=== PATIENT | female | born 1990 | race Caucasian/White ===

== ENCOUNTER 2017-11-01 12:06 | Emergency (ER) | payer SELFPAY ==
[2017-11-01 12:46] VITALS: BP 112/77; PULSE 101; RESP 18; TEMP 99.4; O2SAT 100
--- NOTE | 2017-11-01 14:16 | C.PDOC ---
History Of Present Illness 27yo female, presents to ED with complaints of fever, bodyaches, cough, sore throat, congestion and headache for the past 2 days. She reports 2 episodes of vomiting yesterday, as well as episodes of diarrhea yesterday. She reports taking Tylenol for her symptoms with minimal relief. She did not receive the flu vaccination this season. Time Seen by Provider: 11/01/17 13:41 Chief Complaint (Nursing): Flu-like Symptoms History Per: Patient History/Exam Limitations: no limitations Onset/Duration Of Symptoms: Days Current Symptoms Are (Timing): Still Present Location Of Pain: Throat, Sinus/es, Diffuse Myalgias, Headache Associated Symptoms: Chills, Sore Throat, Cough, Myalgias, Nasal Congestion, Vomiting, Diarrhea Additional History Per: Patient Past Medical History Reviewed: Historical Data, Nursing Documentation, Vital Signs Vital Signs: Last Vital Signs Temp 99.4 F 11/01/17 12:41 Pulse 101 H 11/01/17 12:41 Resp 18 11/01/17 12:41 BP 112/77 11/01/17 12:41 Pulse Ox 100 11/01/17 14:28 - Medical History PMH: No Chronic Diseases - [facility] Procedures TETANUS TOXOID ADMINIST (12/17/03) Family History: States: No Known Family Hx, Unknown Family Hx - Social History Hx Tobacco Use: Yes Hx Alcohol Use: No Hx Substance Use: No - Immunization History Hx Tetanus Toxoid Vaccination: No Hx Influenza Vaccination: No Hx Pneumococcal Vaccination: No Review Of Systems Constitutional: Positive for: Fever, Malaise ENT: Positive for: Nose Congestion, Throat Pain. Negative for: Ear Pain Cardiovascular: Negative for: Palpitations Respiratory: Positive for: Cough. Negative for: Sputum, Wheezing Gastrointestinal: Positive for: Vomiting, Diarrhea. Negative for: Abdominal Pain Genitourinary: Negative for: Dysuria Neurological: Positive for: Headache. Negative for: Weakness, Numbness, Dizziness Physical Exam - Physical Exam Appears: Non-toxic Skin: Normal Color, Warm, Dry Head: Atraumatic, Normacephalic Eye(s): bilateral: Normal Inspection, PERRL, EOMI Ear(s): Bilateral: Normal (no erythema) Nose: Normal Oral Mucosa: Moist Throat: Normal, No Erythema, No Exudate Neck: Normal ROM, Supple Chest: Symmetrical Cardiovascular: Rhythm Regular, No Murmur Respiratory: Normal Breath Sounds, No Rhonchi, No Wheezing Extremity: Bilateral: Atraumatic, Normal Color And Temperature, Normal ROM Neurological/Psych: Oriented x3, Normal Speech Gait: Steady ED Course And Treatment O2 Sat by Pulse Oximetry: 100 (room air) Pulse Ox Interpretation: Normal Medical Decision Making Medical Decision Making: Impression: Viral illness Plan: -- Rapid flu Time: 1345 Serology reports indicate patient positive for Flu A. Re-eval: Patient informed she has the flu and explain the course and symptoms of Influenza. Rx for Tamiflu given. Recommend supportive treatment and instruct to take Tylenol or Motrin alternating every 4-6 hours for Fever 100.4F or higher. Rest and drink plenty of fluids to prevent dehydration. Patient feels comfortable going home and will be discharged. Patient given follow up instructions. Instructed to return to ER if symptoms worsen or new symptoms arise. Disposition Counseled Patient/Family Regarding: Need For Followup, Rx Given - Disposition Referrals: [facility] [Outside] [facility] [Outside] Disposition: HOME/ ROUTINE Disposition Time: 14:15 Condition: GOOD Additional Instructions: You have Influenza. Take Tamiflu twice a day for 5 days Take Tylenol or Motrin alternating every 4-6 hours for Fever 100.4F or higher. Take medicine as needed for symptoms relief follow up in the clinic for more medical care Prescriptions: Ibuprofen [Motrin] 600 mg PO Q8 #30 tab Oseltamivir [Tamiflu] 75 mg PO BID #10 cap Instructions: Influenza (ED) Forms: [facility] (Luxembourgish), Work Excuse - POA Present On Arrival: None - Clinical Impression Clinical Impression: Influenza - PA / ASSISTANT PASTRY CHEF / Resident Statement MD/DO has reviewed & agrees with the documentation as recorded. - Scribe Statement The provider has reviewed the documentation as recorded by the Scribe (Tracy Vera) Provider Scribe Attestation: All medical record entries made by the Scribe were at my direction and personally dictated by me. I have reviewed the chart and agree that the record accurately reflects my personal performance of the history, physical exam, medical decision making, and the department course for this patient. I have also personally directed, reviewed, and agree with the discharge instructions and disposition.
== END 2017-11-01 14:45 | disposition home or self-care (01) ==
LOC: C.ER 12:06
DX: J11.1 Influenza due to unidentified influenza virus with other respiratory manifestations (principal); F17.210 Nicotine dependence, cigarettes, uncomplicated

== ENCOUNTER 2019-02-01 18:39 | Emergency (ER) | payer SELFPAY ==
[2019-02-01] MEDS ORDERED: Sodium Chloride 0.9% 1,000 ML IV ONE (19:08)
[2019-02-01] MEDS ORDERED: Iohexol 240 (50 ml) PO ONE (19:09)
--- NOTE | 2019-02-01 19:19 | C.PDOC ---
History Of Present Illness 28 year old female presents to the ED complains of abdominal pain radiating to her right lower back for 4 days. Associated with rectal bleeding and black stools. Denies any fever, chills, shortness of breath, chest pain, dysuria, hem aturia, nausea, vomiting, diarrhea, or any other symptoms. Chief Complaint (Nursing): Back Pain History Per: Patient History/Exam Limitations: no limitations Onset/Duration Of Symptoms: Days Current Symptoms Are (Timing): Still Present Radiation Of Pain To:: Back Quality Of Discomfort: "Pain" Associated Symptoms: Back Pain. denies: Fever, Chills, Nausea, Vomiting, Diarrhea, Chest Pain, Urinary Symptoms Past Medical History Reviewed: Historical Data, Nursing Documentation, Vital Signs Vital Signs: Last Vital Signs Temp 98.8 F 02/01/19 18:58 Pulse 78 02/01/19 18:58 Resp 20 02/01/19 18:58 BP 119/78 02/01/19 18:58 Pulse Ox 98 02/01/19 18:58 - Medical History PMH: No Chronic Diseases Other Surgeries: eye surgery - [facility] Procedures TETANUS TOXOID ADMINIST (12/17/03) Family History: States: No Known Family Hx - Social History Hx Tobacco Use: Yes Hx Alcohol Use: No Hx Substance Use: No - Immunization History Hx Tetanus Toxoid Vaccination: No Hx Influenza Vaccination: No Hx Pneumococcal Vaccination: No Review Of Systems Constitutional: Negative for: Fever, Chills Cardiovascular: Negative for: Chest Pain Respiratory: Negative for: Shortness of Breath Gastrointestinal: Positive for: Abdominal Pain, Melena, Hematochezia. Negative for: Nausea, Vomiting, Diarrhea Genitourinary: Negative for: Dysuria, Hematuria, Vaginal Discharge, Vaginal Bleeding Musculoskeletal: Positive for: Back Pain Neurological: Negative for: Headache Physical Exam - Physical Exam Appears: Non-toxic, No Acute Distress Skin: Warm, Dry Head: Normacephalic Eye(s): bilateral: PERRL, EOMI, Conjunctiva Pale Nose: Normal Oral Mucosa: Moist Neck: Supple Chest: Symmetrical Cardiovascular: Rhythm Regular Respiratory: Normal Breath Sounds, No Rales, No Rhonchi, No Wheezing Gastrointestinal/Abdominal: Soft, Tenderness (RLQ ), No Distention, No Guarding, No Rebound Rectal: No Blood Streaked Stool, Other (brown stools ) Back: No CVA Tenderness Neurological/Psych: Oriented x3, Normal Speech Gait: Steady ED Course And Treatment - Laboratory Results Result Diagrams: 02/01/19 19:25 02/01/19 19:25 O2 Sat by Pulse Oximetry: 98 (RA) Pulse Ox Interpretation: Normal Medical Decision Making Medical Decision Making: Plan - CT abd/pel - Bloodwork - Toradol 30mg IVP - Protonix 40mg IVP - UA - HCG Urine Disposition Counseled Patient/Family Regarding: Diagnosis - Disposition Referrals: Joann Camarena MD [Staff Provider] - [facility] [Outside] Disposition: HOME/ ROUTINE Disposition Time: 23:07 Condition: STABLE Instructions: Bloody Stools, Adult (DC), Colitis Forms: [facility] (Uzbek) - POA Present On Arrival: None - Clinical Impression Clinical Impression: Colitis, Rectal bleed - Scribe Statement The provider has reviewed the documentation as recorded by the Scribe Millie Villanueva All medical record entries made by the Scribe were at my direction and personally dictated by me. I have reviewed the chart and agree that the record accurately reflects my personal performance of the history, physical exam, medical decision making, and the department course for this patient. I have also personally directed, reviewed, and agree with the discharge instructions and disposition.
[2019-02-01] MEDS ORDERED: Sodium Chloride 0.9% 1,000 ML ONE (19:28)
[2019-02-01] MEDS ORDERED: Iohexol 240 (50 ml) ONE (19:28)
[2019-02-01 19:33] LABS: BASO # 0.1 K/uL (0.0-0.2); BASO % 0.5 % (0.0-2.0); EOS # 0.2 K/uL (0.0-0.7); EOS % 1.9 % (0.0-4.0); HEMOGLOBIN 12.7 g/dL (11.0-16.0); LYMPH # 3.9 K/uL (1.0-4.3); LYMPH % 41.5 % (20.0-40.0); MEAN CELL VOLUME 83.6 fL (81.0-99.0); MEAN CORPUSCULAR HEMOGLOBIN 27.6 pg (27.0-31.0); MEAN CORPUSCULAR HGB CONC 33.1 g/dL (33.0-37.0); MEAN PLATELET VOLUME 10.2 fL (7.2-11.7); MONO # 0.7 K/uL (0.0-0.8); MONO % 7.5 % (0.0-10.0); NEUT # 4.6 K/uL (1.8-7.0); NEUT % 48.6 % (50.0-75.0); RBC 4.61 Mil/uL (3.80-5.20); RED CELL DISTRIBUTION WIDTH 13.7 % (11.5-14.5); WHITE BLOOD COUNT 9.4 K/uL (4.8-10.8)
[2019-02-01 19:43] LABS: HCG,QUALITATIVE URINE NEGATIVE (NEGATIVE)
[2019-02-01 19:44] LABS: SQUAMOUS EPITHIAL 2 /hpf (0-5); URINE BACTERIA RARE (<OCC); URINE BILIRUBIN NEGATIVE (NEGATIVE); URINE BLOOD NEGATIVE (NEGATIVE); URINE CLARITY Hazy (Clear); URINE COLOR Yellow (YELLOW); URINE GLUCOSE (UA) NORMAL (Normal); URINE LEUKOCYTE ESTERASE NEG Leu/uL (Negative); URINE PROTEIN NEGATIVE (NEGATIVE); URINE UROBILINOGEN NORMAL mg/dL (0.2-1.0)
[2019-02-01 19:49] LABS: ALB/GLOB RATIO 1.5 (1.0-2.1); ALBUMIN 4.4 g/dL (3.5-5.0); ALT/SGPT 40 U/L (9-52); AST/SGOT 31 U/L (14-36); BLOOD UREA NITROGEN 20 mg/dL (7-17); CALCIUM 9.9 mg/dl (8.6-10.4); GFR NON-AFRICAN AMERICAN > 60; LIPASE 59 U/L (23-300)
[2019-02-01 19:54] LABS: INR 1.1; PROTHROMBIN TIME 11.9 SECONDS (9.7-12.2)
[2019-02-01] MEDS ORDERED: Iodixanol 320 MG/ML 100 ML BOTTLE IV ONE (20:18)
[2019-02-01 23:06] VITALS: BP 101/70; PULSE 64; RESP 20; TEMP 97.4
[2019-02-01 23:08] VITALS: O2SAT 98
--- NOTE | 2019-02-02 08:49 | CT ---
Date of service: 02/01/2019 PROCEDURE: CT Abdomen and Pelvis with contrast HISTORY: GI bleeding COMPARISON: None available. TECHNIQUE: CT scan of the abdomen and pelvis was performed after administration of intravenous contrast. Oral contrast was administered. Coronal and sagittal reformatted images were obtained. Contrast dose: 100 mL Visipaque 320 Radiation dose: Total exam DLP = 1167.65 mGy-cm. This CT exam was performed using one or more of the following dose reduction techniques: Automated exposure control, adjustment of the mA and/or kV according to patient size, and/or use of iterative reconstruction technique. FINDINGS: LOWER THORAX: The visualized lungs are clear. LIVER: Normal in size with homogeneous enhancement. No gross lesion or ductal dilatation. GALLBLADDER AND BILE DUCTS: The gallbladder is contracted. PANCREAS: Normal in size with homogeneous enhancement. No gross lesion or ductal dilatation. SPLEEN: Normal in size and appearance. ADRENALS: No discrete nodule. KIDNEYS AND URETERS: Normal in size with homogeneous enhancement. No hydronephrosis. There is a 1.4 x 1.3 cm low-attenuation lesion internal septations in the lower pole of the left kidney posteriorly. VASCULATURE: No aortic aneurysm. There are no aortic atherosclerotic calcifications or mural plaque present. BOWEL: The small bowel loops are normal in caliber. There is mild circumferential mural thickening in the descending and sigmoid colon. No evidence for bowel obstruction. APPENDIX: Normal appendix. PERITONEUM: No free fluid. No free air. LYMPH NODES: No enlarged lymph nodes. BLADDER: Well distended and normal in appearance. REPRODUCTIVE: The uterus is normal in size. BONES: No acute fracture. Within normal limits for the patient's age. OTHER FINDINGS: None. IMPRESSION: 1. Findings are most compatible with acute nonspecific infectious/inflammatory colitis involving the descending and sigmoid colon. No evidence for bowel obstruction. 2. 1.3 x 1.4 cm apparent complicated/septated cyst in the lower pole of the left kidney. Please correlate with retroperitoneal ultrasound for further evaluation. A preliminary report was provided by [facility]. Please follow-up with retroperitoneum ultrasound for further characterization of complicated/septated cyst in the left kidney. This finding was not mentioned on the preliminary report. The final report is tagged to the PA review folder.
== END 2019-02-01 23:17 | disposition home or self-care (01) ==
LOC: C.ER 18:39
DX: K52.9 Noninfective gastroenteritis and colitis, unspecified (principal); K62.5 Hemorrhage of anus and rectum
CPT/HCPCS: 74177; 80053; 81001; 83690; 84703; 85025; 85610; 85730; 86850; 86900; 96374; 96375; 99285; C9113; G0328; J1885; J7030; Q9966; Q9967

== ENCOUNTER 2019-02-02 09:06 | Observation (INO) | payer SELFPAY ==
[2019-02-02] MEDS ORDERED: Sodium Chloride 0.9% 1,000 ML IV ONE ×2 (09:29→13:34)
[2019-02-02] MEDS ORDERED: Sodium Chloride 0.9% 1,000 ML ONE ×2 (09:39→13:42)
[2019-02-02 09:41] LABS: BASO # 0.1 K/uL (0.0-0.2); BASO % 0.8 % (0.0-2.0); EOS # 0.1 K/uL (0.0-0.7); EOS % 2.1 % (0.0-4.0); HEMOGLOBIN 12.7 g/dL (11.0-16.0); LYMPH # 2.4 K/uL (1.0-4.3); LYMPH % 35.8 % (20.0-40.0); MEAN CORPUSCULAR HEMOGLOBIN 28.2 pg (27.0-31.0); MEAN CORPUSCULAR HGB CONC 33.5 g/dL (33.0-37.0); MEAN PLATELET VOLUME 10.2 fL (7.2-11.7); MONO # 0.5 K/uL (0.0-0.8); MONO % 7.3 % (0.0-10.0); NEUT # 3.6 K/uL (1.8-7.0); RBC 4.52 Mil/uL (3.80-5.20); RED CELL DISTRIBUTION WIDTH 13.9 % (11.5-14.5); WHITE BLOOD COUNT 6.7 K/uL (4.8-10.8)
[2019-02-02 09:56] LABS: ALB/GLOB RATIO 1.4 (1.0-2.1); ALBUMIN 4.1 g/dL (3.5-5.0); ALT/SGPT 39 U/L (9-52); AST/SGOT 28 U/L (14-36); BLOOD UREA NITROGEN 16 mg/dL (7-17); GFR NON-AFRICAN AMERICAN > 60; LIPASE 52 U/L (23-300)
[2019-02-02 11:20] LABS: INR 1.1
--- NOTE | 2019-02-02 12:41 | US ---
HISTORY: right sided abdominal pain COMPARISON: CT abdomen pelvis with contrast performed 02/01/19 TECHNIQUE: Sonographic evaluation of the abdomen. FINDINGS: LIVER: Measures 17.6 cm in sagittal dimension. Echogenic liver may be seen in setting of hepatic parenchymal disease or fatty infiltration. No focal hepatic mass identified. The main portal vein appears patent with normal directional flow. No intrahepatic bile duct dilatation. GALLBLADDER: No gallstones. No gallbladder wall thickening. Negative sonographic Buckner's sign as assessed by the sweetbread trimmer. COMMON BILE DUCT: Measures 4 mm. PANCREAS: Not well visualized. RIGHT KIDNEY: Measures 10.0 x 4.6 X 4.6cm. No obstructing calculus or hydronephrosis identified. LEFT KIDNEY: Measures 11.2 x 5.6 x 4.3 cm. No obstructing calculus or hydronephrosis identified. 1.4 x 1.2 x 1.3 cm mid to lower pole left renal cyst with 7 mm calcification at the posterior wall. SPLEEN: Measures approximately 11.8 cm. AORTA: Limited views appear unremarkable. IVC: IVC is not adequately evaluated/imaged on this study. OTHER FINDINGS: None. IMPRESSION: Echogenic liver may be seen in setting of hepatic parenchymal disease or fatty infiltration. 1.4 x 1.2 x 1.3 cm mid to lower pole left renal cyst with 7 mm calcification at the posterior wall. IVC is not adequately evaluated/imaged on this study.
[2019-02-02 13:20] LABS: BASO % 0.7 % (0.0-2.0); EOS # 0.1 K/uL (0.0-0.7); EOS % 1.5 % (0.0-4.0); HEMOGLOBIN 11.7 g/dL (11.0-16.0); LYMPH # 2.8 K/uL (1.0-4.3); MEAN CELL VOLUME 83.3 fL (81.0-99.0); MEAN CORPUSCULAR HEMOGLOBIN 27.9 pg (27.0-31.0); MEAN CORPUSCULAR HGB CONC 33.5 g/dL (33.0-37.0); MEAN PLATELET VOLUME 10.1 fL (7.2-11.7); MONO # 0.5 K/uL (0.0-0.8); MONO % 6.8 % (0.0-10.0); NEUT # 3.2 K/uL (1.8-7.0); NRBC % 0.1 % (0.0-2.0); RBC 4.21 Mil/uL (3.80-5.20); RED CELL DISTRIBUTION WIDTH 13.8 % (11.5-14.5); WHITE BLOOD COUNT 6.6 K/uL (4.8-10.8)
[2019-02-02] MEDS ORDERED: metroNIDAZOLE IV 500 mg/100 ml 500 MG/100 ML BAG IVPB STA (13:32)
[2019-02-02] MEDS ORDERED: Ciprofloxacin 400mg/200ml D5W 400 MG/200 ML BAG IVPB STA (13:32)
[2019-02-02] MEDS ORDERED: Ciprofloxacin 400mg/200ml D5W 400 MG/200 ML BAG IVPB ONE (13:41)
[2019-02-02] MEDS ORDERED: metroNIDAZOLE IV 500 mg/100 ml 500 MG/100 ML BAG ONE (13:42)
--- NOTE | 2019-02-02 15:58 | C.PDOC ---
History Of Present Illness 28 year old female presents to the ED complaining of increased rectal bleeding and diarrhea. Reports she has bright red blood per rectum, black stools, nausea and vomiting. States she has not eaten since yesterday. Denies any fever. Reports she was seen yesterday in the ED and notes rectal bleeding and abdominal pain have progressed. Denies any other physical complaints. Chief Complaint (Nursing): Abdominal Pain History Per: Patient History/Exam Limitations: no limitations Onset/Duration Of Symptoms: Days Current Symptoms Are (Timing): Still Present Associated Symptoms: Nausea, Vomiting, Diarrhea. denies: Fever, Chills, Urinary Symptoms Past Medical History Reviewed: Historical Data, Nursing Documentation, Vital Signs Vital Signs: Last Vital Signs Temp 97.9 F 02/02/19 15:34 Pulse 57 L 02/02/19 15:34 Resp 17 02/02/19 15:34 BP 115/74 02/02/19 15:34 Pulse Ox 98 02/02/19 15:34 - Medical History Other PMH: Hemorrhoids Other Surgeries: Eye surgery - [facility] Procedures TETANUS TOXOID ADMINIST (12/17/03) Family History: States: No Known Family Hx - Social History Hx Tobacco Use: Yes Hx Alcohol Use: No Hx Substance Use: No - Immunization History Hx Tetanus Toxoid Vaccination: No Hx Influenza Vaccination: No Hx Pneumococcal Vaccination: No Review Of Systems Except As Marked, All Systems Reviewed And Found Negative. Constitutional: Negative for: Fever, Chills Cardiovascular: Negative for: Chest Pain Respiratory: Negative for: Shortness of Breath Gastrointestinal: Positive for: Nausea, Vomiting, Abdominal Pain, Diarrhea, Melena, Hematochezia Genitourinary: Negative for: Dysuria, Hematuria Musculoskeletal: Negative for: Back Pain Neurological: Negative for: Headache Physical Exam - Physical Exam Appears: Non-toxic, No Acute Distress Skin: Warm, Dry, No Rash Head: Normacephalic Eye(s): bilateral: Normal Inspection Nose: Normal Oral Mucosa: Moist Neck: Supple Chest: Symmetrical Cardiovascular: Rhythm Regular Respiratory: Normal Breath Sounds, No Rales, No Rhonchi, No Wheezing Gastrointestinal/Abdominal: Soft, Tenderness (right sided abdominal tenderness ), No Distention, No Guarding, No Rebound Back: No CVA Tenderness Neurological/Psych: Oriented x3, Normal Speech Gait: Steady ED Course And Treatment - Laboratory Results Result Diagrams: 02/02/19 13:16 04/25/19 09:38 Lab Results: PT 12.0 SECONDS (9.7-12.2) 02/02/19 10:59 INR 1.1 02/02/19 10:59 APTT 33.0 SECONDS (21-34) 02/02/19 10:59 Total Bilirubin 0.3 mg/dL (0.2-1.3) 02/02/19 09:38 AST 28 U/L (14-36) 02/02/19 09:38 ALT 39 U/L (9-52) 02/02/19 09:38 Alkaline Phosphatase 87 U/L (38-126) 02/02/19 09:38 Total Protein 6.9 g/dL (6.3-8.3) 02/02/19 09:38 Albumin 4.1 g/dL (3.5-5.0) 02/02/19 09:38 Globulin 2.8 gm/dL (2.2-3.9) 02/02/19 09:38 Albumin/Globulin Ratio 1.4 (1.0-2.1) 02/02/19 09:38 Lipase 52 U/L (23-300) 02/02/19 09:38 Beta HCG, Quant < 2.39 mIU/ML 02/02/19 09:38 O2 Sat by Pulse Oximetry: 98 (RA) Pulse Ox Interpretation: Normal Medical Decision Making Medical Decision Making: Plan - Bloodwork - Ciprofloxacin 400mg/200ml IVPB - Flagyl 500mg/100ml IVPB - Morphine 2mg IVP - Pepcid 20mg IVP - Zofran 8mg IVP - IV fluids - Stool cultures - US ABD US ABDOMEN Results: IMPRESSION: Echogenic liver may be seen in setting of hepatic parenchymal disease or fatty infiltration. 1.4 x 1.2 x 1.3 cm mid to lower pole left renal cyst with 7 mm calcification at the posterior wall. IVC is not adequately evaluated/imaged on this study. Spoke to Dr. Adam. Patient will be admitted to her service. Disposition - Disposition Disposition: HOSPITALIZED Disposition Time: 13:00 Condition: FAIR - Clinical Impression Clinical Impression: Rectal bleed, Colitis - Scribe Statement The provider has reviewed the documentation as recorded by the Scribe Millie Villanueva All medical record entries made by the Scribe were at my direction and persona lly dictated by me. I have reviewed the chart and agree that the record accurately reflects my personal performance of the history, physical exam, medical decision making, and the department course for this patient. I have also personally directed, reviewed, and agree with the discharge instructions and disposition.
--- NOTE | 2019-02-02 16:11 | CP.PCM.HP ---
History of Present Illness - History of Present Illness History of Present Illness: Medicine H&P for Dr. Adam's service CC: rectal bleeding HPI: 28 yo female w/ PMH of irregular periods, low back pain, achilles sprain, and external hemmorhoids admitted for rectal bleeding. Patient states the bleeding started 4 days ago with the low back pain. States she has a history of external hemorrhoids but the rectal bleeding is different because she is not having pain with bleeding bowel movements. States that she starting having diarrhea with major blood clots with bowel movements starting yesterday. Today she had an episode of nausea/vomiting x 1 and patient attributes it to drinking too much water. Has taken aleve for past 4 days with the back pain. No recent abx use. No recent illness. Denies fevers, chills, chest pain, sob, n/v, constipation or diarrhea, and dysurai. Patient not currently . PMH: irregular periods, low back pain, achilles sprain, and external hemmorhoids PSH: Denies FH: HTN (mother), denies colon cancer or IBD in family history Meds: Denies Allergies: NKDA Social: occasional tobacco use when socially drinking with friends, denies daily use; denies illicit drug use Code: Full code Adv Directive: Father Present on Admission - Present on Admission Any Indicators Present on Admission: No Review of Systems - Review of Systems All systems: reviewed and no additional remarkable complaints except Review of Systems: see hpi Past Patient History - Infectious Disease Hx of Infectious Diseases: None - Past Social History Smoking Status: Light Smoker < 10 Cigarettes Daily - HEMATOLOGICAL/ONCOLOGICAL Other/Comment: irregular menstruation - GASTROINTESTINAL Hx Hemorrhoids: Yes - PSYCHIATRIC Hx Substance Use: No - SURGICAL HISTORY Hx Surgeries: Yes Hx Eye Surgery: Yes - ANESTHESIA Hx Anesthesia: Yes Hx Anesthesia Reactions: No Hx Malignant Hyperthermia: No Meds Allergies/Adverse Reactions: Allergies Allergy/AdvReac Type Severity Reaction Status Date / Time No Known Allergies Allergy Verified 02/01/19 18:51 Physical Exam - Constitutional Appears: Non-toxic, No Acute Distress - Head Exam Head Exam: NORMAL INSPECTION, NORMOCEPHALIC - Eye Exam Eye Exam: EOMI, Normal appearance. absent: Nystagmus, Scleral icterus - ENT Exam ENT Exam: Mucous Membranes Moist - Respiratory Exam Respiratory Exam: Clear to Auscultation Bilateral, NORMAL BREATHING PATTERN. absent: Rhonchi, Wheezes - Cardiovascular Exam Cardiovascular Exam: REGULAR RHYTHM, +S1, +S2 - GI/Abdominal Exam GI & Abdominal Exam: Normal Bowel Sounds, Soft, Tenderness Additional comments: slight suprapubic tenderness - Extremities Exam Extremities exam: Positive for: normal inspection. Negative for: calf tenderness, pedal edema - Neurological Exam Neurological exam: Alert, CN II-XII Intact, Oriented x3 - Psychiatric Exam Psychiatric exam: Normal Affect, Normal Mood - Skin Skin Exam: Dry, Intact, Normal Color Results - Vital Signs Recent Vital Signs: Last Vital Signs Temp 97.9 F 02/02/19 15:34 Pulse 57 L 02/02/19 15:34 Resp 17 02/02/19 15:34 BP 115/74 02/02/19 15:34 Pulse Ox 98 02/02/19 16:01 - Labs Result Diagrams: 02/02/19 13:16 02/02/19 09:38 Labs: Laboratory Results - last 24 hr 02/02/19 02/02/19 02/02/19 09:38 09:38 10:59 WBC 6.7 RBC 4.52 Hgb 12.7 Hct 38.0 MCV 84.0 MCH 28.2 MCHC 33.5 RDW 13.9 Plt Count 235 MPV 10.2 Neut % (Auto) 54.0 Lymph % (Auto) 35.8 Brooks % (Auto) 7.3 Eos % (Auto) 2.1 Baso % (Auto) 0.8 Neut # (Auto) 3.6 Lymph # (Auto) 2.4 Brooks # (Auto) 0.5 Eos # (Auto) 0.1 Baso # (Auto) 0.1 PT 12.0 INR 1.1 APTT 33.0 Sodium 138 Potassium 4.2 Chloride 109 H Carbon Dioxide 21 L Anion Gap 12 BUN 16 Creatinine 0.7 Est GFR ( Amer) > 60 Est GFR (Non-Af Amer) > 60 Random Glucose 100 Calcium 9.0 Total Bilirubin 0.3 AST 28 ALT 39 Alkaline Phosphatase 87 Total Protein 6.9 Albumin 4.1 Globulin 2.8 Albumin/Globulin Ratio 1.4 Lipase 52 Beta HCG, Quant < 2.39 02/02/19 13:16 WBC 6.6 RBC 4.21 Hgb 11.7 Hct 35.1 MCV 83.3 MCH 27.9 MCHC 33.5 RDW 13.8 Plt Count 217 MPV 10.1 Neut % (Auto) 49.0 L Lymph % (Auto) 42.0 H Brooks % (Auto) 6.8 Eos % (Auto) 1.5 Baso % (Auto) 0.7 Neut # (Auto) 3.2 Lymph # (Auto) 2.8 Brooks # (Auto) 0.5 Eos # (Auto) 0.1 Baso # (Auto) 0.0 PT INR APTT Sodium Potassium Chloride Carbon Dioxide Anion Gap BUN Creatinine Est GFR ( Amer) Est GFR (Non-Af Amer) Random Glucose Calcium Total Bilirubin AST ALT Alkaline Phosphatase Total Protein Albumin Globulin Albumin/Globulin Ratio Lipase Beta HCG, Quant Assessment & Plan - Assessment and Plan (Free Text) Assessment: 28 yo female w/ PMH of external hemorrohoids, abnormal uterine bleeding (ir regular periods), and achilles sprain admitted for rectal bleeding. Plan: Rectal Bleeding etiology: IBD vs internal hemorrhoids vs infectious colitis vs GI ulcer GI consulted: Dr. Prince- davide appreciated Abdominal U/S- echogenic liver, renal cyst CT abdomen/pelvis: findings are most compatible w/ acute nonspecific infectious/inflammatory colitis IV flagyl 500 q8h IV cipro 400 q12h ESR pending ova parasite pending stool leukocyte and cx pending Hep panel pending Hemodynamically stable IV fluids NS @ 250mls/hr (1000mls) salmonella studies pending protonix 40mg po daily GI ppx: protonix 40mg po daily DVT ppx: SCDs b/l; AC contraindicated in setting of bleed PGY-1 Shola Montero Case d/w Dr. Adam
[2019-02-02] MEDS: Pantoprazole 40 mg EC Tab PO SCH (17:51)
[2019-02-02 19:13] LABS: BASO % 0.3 % (0.0-2.0); EOS # 0.1 K/uL (0.0-0.7); EOS % 1.6 % (0.0-4.0); MEAN CORPUSCULAR HEMOGLOBIN 27.2 pg (27.0-31.0); MEAN CORPUSCULAR HGB CONC 32.7 g/dL (33.0-37.0); MEAN PLATELET VOLUME 10.2 fL (7.2-11.7); MONO # 0.5 K/uL (0.0-0.8); MONO % 6.5 % (0.0-10.0); NEUT # 3.8 K/uL (1.8-7.0); NEUT % 51.6 % (50.0-75.0); NRBC % 0.1 % (0.0-2.0); RBC 4.41 Mil/uL (3.80-5.20); RED CELL DISTRIBUTION WIDTH 13.9 % (11.5-14.5); WHITE BLOOD COUNT 7.4 K/uL (4.8-10.8)
--- NOTE | 2019-02-02 19:23 | CP.PCM.CON ---
History of Present Illness - History of Present Illness History of Present Illness: asked to see pt for GI service cons for Rb. Pt reprots BRBPR in past from hemorrhoids. Has had BRBPR over past 3 days- RB and clots. Denies antibioticas, diarrhea, fever, CT- ER- ns colitis. Pt seen with SEUN Decker Review of Systems - Constitutional Constitutional: Anorexia. absent: Weight Loss - Cardiovascular Cardiovascular: absent: Chest Pain, Edema - Respiratory Respiratory: absent: Cough, Dyspnea, Hemoptysis - Gastrointestinal Gastrointestinal: Constipation, Hematochezia. absent: Abdominal Pain, Diarrhea, Dyspepsia, Dysphagia, Hematemesis, Nausea, Odynophagia, Vomiting - Genitourinary Genitourinary: Pyuria. absent: Hematuria - Musculoskeletal Musculoskeletal: Arthralgias, Muscle Cramps - Integumentary Integumentary: absent: Rash, Jaundice - Neurological Neurological: absent: Confusion Past Patient History - Infectious Disease Hx of Infectious Diseases: None - Past Social History Smoking Status: Light Smoker < 10 Cigarettes Daily - HEMATOLOGICAL/ONCOLOGICAL Other/Comment: irregular menstruation - GASTROINTESTINAL Hx Hemorrhoids: Yes - PSYCHIATRIC Hx Substance Use: No - SURGICAL HISTORY Hx Surgeries: Yes Hx Eye Surgery: Yes - ANESTHESIA Hx Anesthesia: Yes Hx Anesthesia Reactions: No Hx Malignant Hyperthermia: No Meds Allergies/Adverse Reactions: Allergies Allergy/AdvReac Type Severity Reaction Status Date / Time No Known Allergies Allergy Verified 02/01/19 18:51 - Medications Medications: Current Medications Ciprofloxacin (Cipro 400mg/200ml Dsw) 400 mg in 200 mls @ 133 mls/hr IVPB Q12H [facility]; Protocol Metronidazole (Flagyl) 500 mg in 100 mls @ 100 mls/hr IVPB Q8H [facility]; Protocol Lidocaine (Lidoderm) 1 ea TD DAILY [facility] Pantoprazole Sodium (Protonix Ec Tab) 40 mg PO DAILY [facility]IDES Last Admin: 02/02/19 17:51 Dose: 40 mg Physical Exam - Constitutional Appears: Well - Respiratory Exam Respiratory Exam: Clear to Auscultation Bilateral - Cardiovascular Exam Cardiovascular Exam: RRR - GI/Abdominal Exam GI & Abdominal Exam: Normal Bowel Sounds, Soft. absent: Guarding, Rigid, Tenderness - Extremities Exam Extremities exam: Negative for: pedal edema - Neurological Exam Neurological exam: Oriented x3 Results - Vital Signs Recent Vital Signs: Last Vital Signs Temp 97.9 F 02/02/19 16:25 Pulse 52 L 02/02/19 16:25 Resp 20 02/02/19 16:25 BP 112/71 02/02/19 16:25 Pulse Ox 98 02/02/19 18:14 - Labs Result Diagrams: 02/02/19 19:11 02/02/19 09:38 Labs: Laboratory Results - last 24 hr 02/02/19 02/02/19 02/02/19 09:38 09:38 10:59 WBC 6.7 RBC 4.52 Hgb 12.7 Hct 38.0 MCV 84.0 MCH 28.2 MCHC 33.5 RDW 13.9 Plt Count 235 MPV 10.2 Neut % (Auto) 54.0 Lymph % (Auto) 35.8 [place] % (Auto) 7.3 Eos % (Auto) 2.1 Baso % (Auto) 0.8 Neut # (Auto) 3.6 Lymph # (Auto) 2.4 [place] # (Auto) 0.5 Eos # (Auto) 0.1 Baso # (Auto) 0.1 PT 12.0 INR 1.1 APTT 33.0 Sodium 138 Potassium 4.2 Chloride 109 H Carbon Dioxide 21 L Anion Gap 12 BUN 16 Creatinine 0.7 Est GFR ( Amer) > 60 Est GFR (Non-Af Amer) > 60 Random Glucose 100 Calcium 9.0 Total Bilirubin 0.3 AST 28 ALT 39 Alkaline Phosphatase 87 Total Protein 6.9 Albumin 4.1 Globulin 2.8 Albumin/Globulin Ratio 1.4 Lipase 52 Beta HCG, Quant < 2.39 02/02/19 02/02/19 13:16 19:11 WBC 6.6 7.4 RBC 4.21 4.41 Hgb 11.7 12.0 Hct 35.1 36.6 MCV 83.3 83.0 MCH 27.9 27.2 MCHC 33.5 32.7 L RDW 13.8 13.9 Plt Count 217 225 MPV 10.1 10.2 Neut % (Auto) 49.0 L 51.6 Lymph % (Auto) 42.0 H 40.0 [place] % (Auto) 6.8 6.5 Eos % (Auto) 1.5 1.6 Baso % (Auto) 0.7 0.3 Neut # (Auto) 3.2 3.8 Lymph # (Auto) 2.8 3.0 [place] # (Auto) 0.5 0.5 Eos # (Auto) 0.1 0.1 Baso # (Auto) 0.0 0.0 PT INR APTT Sodium Potassium Chloride Carbon Dioxide Anion Gap BUN Creatinine Est GFR ( Amer) Est GFR (Non-Af Amer) Random Glucose Calcium Total Bilirubin AST ALT Alkaline Phosphatase Total Protein Albumin Globulin Albumin/Globulin Ratio Lipase Beta HCG, Quant Assessment & Plan (1) Colitis Status: Acute (2) Rectal bleed Assessment and Plan: reports hemorrhoids. Rectal exam done by other MD. I doubt colitis- there is no diarrhea. r/o infection,. Rec- check stool tests, follow Hb. Consider colonosocpy. Status: Acute
[2019-02-02 19:25] LABS: HEPATITIS B SURFACE AG Negative (NEGATIVE)
[2019-02-02 19:31] LABS: HEPATITIS A IGM NEGATIVE (NEGATIVE); HEPATITIS B CORE AB NEGATIVE (NEGATIVE)
[2019-02-02 19:43] LABS: HEPATITIS C ANTIBODY NEGATIVE (NEGATIVE)
[2019-02-02 20:55] LABS: FSH 4.2 mIU/mL
[2019-02-02] MEDS: metroNIDAZOLE IV 500 mg/100 ml 500 MG/100 ML BAG IVPB SCH (21:19)
[2019-02-03] MEDS: Ciprofloxacin 400mg/200ml D5W 400 MG/200 ML BAG IVPB SCH ×2 (02:47→14:25)
[2019-02-03] MEDS: metroNIDAZOLE IV 500 mg/100 ml 500 MG/100 ML BAG IVPB SCH ×3 (05:18→21:49)
--- NOTE | 2019-02-03 07:31 | CP.PCM.PN ---
Subjective - Date & Time of Evaluation Date of Evaluation: 02/03/19 Time of Evaluation: 07:00 - Subjective Subjective: Medicine progress note for Dr. Adam. Pt seen and examined at bedside. Patient reports having worsening lower lumbar pain with reports radiation to legs, reported 4/10. Pt denies loss of motor function, however, reports numbness and tingling. Pt also reports still passing blood clots; however, no bowel movements. Pt denies nausea, vomiting, diarrhea, fevers, chills, headaches. Objective - Vital Signs/Intake and Output Vital Signs (last 24 hours): Temp Pulse Resp BP Pulse Ox 97.6 F 52 L 20 93/61 L 98 02/02/19 23:40 02/03/19 00:00 02/02/19 23:40 02/02/19 23:40 02/03/19 00:00 - Medications Medications: Current Medications Ciprofloxacin (Cipro 400mg/200ml Dsw) 400 mg in 200 mls @ 133 mls/hr IVPB Q12H [facility]; Protocol Last Admin: 02/03/19 02:47 Dose: 133 mls/hr Metronidazole (Flagyl) 500 mg in 100 mls @ 100 mls/hr IVPB Q8H [facility]; Protocol Last Admin: 02/03/19 05:18 Dose: 100 mls/hr Lidocaine (Lidoderm) 1 ea TD DAILY [facility] Pantoprazole Sodium (Protonix Ec Tab) 40 mg PO DAILY [facility] Last Admin: 02/02/19 17:51 Dose: 40 mg - Labs Labs: 02/02/19 19:11 02/02/19 09:38 PT 12.0 SECONDS (9.7-12.2) 02/02/19 10:59 INR 1.1 02/02/19 10:59 APTT 33.0 SECONDS (21-34) 02/02/19 10:59 - Constitutional Appears: Non-toxic, No Acute Distress - Head Exam Head Exam: NORMAL INSPECTION - Eye Exam Eye Exam: EOMI, Normal appearance Additional comments: normal conjunctiva - ENT Exam ENT Exam: Mucous Membranes Moist - Neck Exam Neck Exam: Full ROM - Respiratory Exam Respiratory Exam: Clear to Ausculation Bilateral, NORMAL BREATHING PATTERN. absent: Rales, Rhonchi, Wheezes - Cardiovascular Exam Cardiovascular Exam: +S1, +S2 - GI/Abdominal Exam GI & Abdominal Exam: Soft, Normal Bowel Sounds. absent: Firm, Guarding - Extremities Exam Extremities Exam: Full ROM, Normal Inspection. absent: Calf Tenderness, Pedal Edema - Back Exam Back Exam: vertebral tenderness. absent: CVA tenderness (L), CVA tenderness (R), paraspinal tenderness Additional comments: tenderness around L3 to L5 area on palpation normal sensory in LE b/l normal motor function in LE b/l patient has tattoo in area, 15+ years old no erythema noted, no bulges straight leg positive - Neurological Exam Neurological Exam: Alert, Awake, Oriented x3 - Psychiatric Exam Psychiatric exam: Normal Affect, Normal Mood - Skin Skin Exam: Dry, Intact, Normal Color, Warm Assessment and Plan - Assessment and Plan (Free Text) Assessment: 28 yo female w/ PMH of external hemorrohoids, abnormal uterine bleeding (irregular periods), and achilles sprain admitted for rectal bleeding, currently still having rectal bleeding and back pain; scheduled for colonoscopy on 02/04 w/ GI Plan: Rectal Bleeding - etiology: IBD vs internal hemorrhoids vs infectious colitis vs GI ulcer - Abdominal U/S- echogenic liver, renal cyst - CT abdomen/pelvis: findings are most compatible w/ acute nonspecific infectious/inflammatory colitis - H/H stable in 12/30s - stool leukocytes +, hep panel negative, c. diff negative, ESR wnl, ova parasite negative, stool culture negative - IV flagyl 500 q8h, cipro 400 q12h - IV fluids NS @ 250mls/hr (1000mls) - salmonella studies pending - protonix 40mg po daily - GI consulted: Dr. Prince- recs appreciated - colonoscopy 02/04 Back pain - lumbar strain vs sciatic problem - hold NSAIDs due to rectal bleeding - lumbar xray - no fractures - PT/OT - warm compress - lidoderm paitch GI ppx: protonix 40mg po daily DVT ppx: SCDs b/l; AC contraindicated in setting of bleed
[2019-02-03 08:35] LABS: BASO % 0.3 % (0.0-2.0); EOS # 0.1 K/uL (0.0-0.7); EOS % 2.1 % (0.0-4.0); HEMOGLOBIN 12.4 g/dL (11.0-16.0); MEAN CELL VOLUME 83.6 fL (81.0-99.0); MEAN CORPUSCULAR HGB CONC 33.5 g/dL (33.0-37.0); MEAN PLATELET VOLUME 10.1 fL (7.2-11.7); MONO # 0.5 K/uL (0.0-0.8); MONO % 8.1 % (0.0-10.0); NEUT # 3.1 K/uL (1.8-7.0); NEUT % 54.5 % (50.0-75.0); NRBC % 0.1 % (0.0-2.0); RBC 4.42 Mil/uL (3.80-5.20); RED CELL DISTRIBUTION WIDTH 13.5 % (11.5-14.5); WHITE BLOOD COUNT 5.6 K/uL (4.8-10.8)
[2019-02-03 09:01] LABS: ALB/GLOB RATIO 1.5 (1.0-2.1); ALBUMIN 3.8 g/dL (3.5-5.0); ALT/SGPT 35 U/L (9-52); AST/SGOT 32 U/L (14-36); BLOOD UREA NITROGEN 12 mg/dL (7-17); CALCIUM 8.7 mg/dl (8.6-10.4); GFR NON-AFRICAN AMERICAN > 60
[2019-02-03] MEDS: Pantoprazole 40 mg EC Tab PO SCH (10:01)
[2019-02-03] MEDS: Lidocaine 5% Patch TD SCH (10:02)
--- NOTE | 2019-02-03 11:05 | RAD ---
Date of service: 02/03/2019 PROCEDURE: Radiographs of the Lumbar Spine. HISTORY: Back pain COMPARISON: No prior. TECHNIQUE: 3 views obtained. FINDINGS: BONES: There is normal alignment of the lumbar vertebral bodies. There is normal lumbar lordosis. There is no acute fracture, spondylolysis or spondylolisthesis. Bone mineralization is normal. DISC SPACES: The disc heights are maintained. OTHER FINDINGS: There are no pathologic soft tissue calcifications. Both sacroiliac joints are normal. IMPRESSION: No acute fracture, spondylolysis or spondylolisthesis.
--- NOTE | 2019-02-03 15:02 | CP.PCM.PN ---
Subjective - Date & Time of Evaluation Date of Evaluation: 02/03/19 Time of Evaluation: 14:59 - Subjective Subjective: f/u R bleed. Pt seen and examined with RN Daniel lower back pain. NO abd pain. Still has BRBPR - few times. Denies diiarrhea,, fever, hematruia, hemoptysis, CP, SOB, SHEPPARD, cough Objective - Vital Signs/Intake and Output Vital Signs (last 24 hours): Temp Pulse Resp BP Pulse Ox 97.9 F 63 20 110/74 96 02/03/19 07:00 02/03/19 12:43 02/03/19 07:00 02/03/19 07:00 02/03/19 12:00 - Medications Medications: Current Medications Ciprofloxacin (Cipro 400mg/200ml Dsw) 400 mg in 200 mls @ 133 mls/hr IVPB Q12H [facility]; Protocol Last Admin: 02/03/19 14:25 Dose: 133 mls/hr Metronidazole (Flagyl) 500 mg in 100 mls @ 100 mls/hr IVPB Q8H [facility]; Protocol Last Admin: 02/03/19 13:13 Dose: 100 mls/hr Lidocaine (Lidoderm) 1 ea TD DAILY [facility] Last Admin: 02/03/19 10:02 Dose: 1 ea Pantoprazole Sodium (Protonix Ec Tab) 40 mg PO DAILY [facility] Last Admin: 02/03/19 10:01 Dose: 40 mg - Labs Labs: 02/03/19 08:18 02/03/19 08:18 PT 12.0 SECONDS (9.7-12.2) 02/02/19 10:59 INR 1.1 02/02/19 10:59 APTT 33.0 SECONDS (21-34) 02/02/19 10:59 - Constitutional Appears: Well - Respiratory Exam Respiratory Exam: Clear to Ausculation Bilateral - Cardiovascular Exam Cardiovascular Exam: RRR - GI/Abdominal Exam GI & Abdominal Exam: Soft, Normal Bowel Sounds. absent: Guarding, Tenderness, Mass, Rebound - Neurological Exam Neurological Exam: Alert, Awake, Oriented x3 Assessment and Plan (1) Colitis Assessment & Plan: But no diarrhea... Fecal wbc is pos. Consider colitis, gastroenteritis. Status: Acute (2) Rectal bleed Assessment & Plan: Reports h/o hemorrhoids. Consider colitis- as per CT findings- but no diarrhea. Due to continueds bleeding, will schedule COLONOSCOPY for tomorrow. Status: Acute
[2019-02-03] MEDS ORDERED: Peg-Electrolyte Oral Soln 4L (Golytely) PO ONE (18:00)
[2019-02-04] MEDS: Ciprofloxacin 400mg/200ml D5W 400 MG/200 ML BAG IVPB SCH (01:53)
[2019-02-04] MEDS: metroNIDAZOLE IV 500 mg/100 ml 500 MG/100 ML BAG IVPB SCH (05:15)
[2019-02-04] MEDS ORDERED: Propofol 10 mg/ml Inj (20 ML) ONE (08:00)
[2019-02-04 08:04] LABS: ALB/GLOB RATIO 1.4 (1.0-2.1); ALBUMIN 3.9 g/dL (3.5-5.0); ALT/SGPT 39 U/L (9-52); AST/SGOT 41 U/L (14-36); BLOOD UREA NITROGEN 12 mg/dL (7-17); CALCIUM 9.1 mg/dl (8.6-10.4); GFR NON-AFRICAN AMERICAN > 60
[2019-02-04 08:11] LABS: BASO % 0.6 % (0.0-2.0); EOS # 0.1 K/uL (0.0-0.7); EOS % 2.3 % (0.0-4.0); HEMOGLOBIN 12.1 g/dL (11.0-16.0); LYMPH # 1.9 K/uL (1.0-4.3); LYMPH % 30.8 % (20.0-40.0); MEAN CELL VOLUME 83.9 fL (81.0-99.0); MEAN CORPUSCULAR HEMOGLOBIN 28.4 pg (27.0-31.0); MEAN CORPUSCULAR HGB CONC 33.9 g/dL (33.0-37.0); MEAN PLATELET VOLUME 10.4 fL (7.2-11.7); MONO # 0.6 K/uL (0.0-0.8); NEUT # 3.4 K/uL (1.8-7.0); NEUT % 56.3 % (50.0-75.0); NRBC % 0.3 % (0.0-2.0); RBC 4.26 Mil/uL (3.80-5.20); RED CELL DISTRIBUTION WIDTH 13.7 % (11.5-14.5)
[2019-02-04] MEDS ORDERED: Midazolam 2 MG/2 ML VIAL ONE (08:15)
[2019-02-04 09:29] VITALS: BP 104/71; PULSE 85; RESP 18; TEMP 97.7; O2SAT 96
[2019-02-04] MEDS: Pantoprazole 40 mg EC Tab PO SCH (10:05)
[2019-02-04] MEDS: Lidocaine 5% Patch TD SCH (10:05)
--- NOTE | 2019-02-04 10:25 | CP.PCM.DIS ---
Provider - Provider Date of Admission: 02/02/19 13:34 Attending physician: Zulema Adam DO Primary care physician: none Consults: 02/02/19 16:16 Gastroenterology Consult Routine Comment: Consulting Provider: Saul Prince Consulting Physician: Saul Prince Reason for Consult: rectal bleeding Time Spent in preparation of Discharge (in minutes): 45 Diagnosis - Discharge Diagnosis (1) Colitis Status: Acute Priority: High (2) Hemorrhoids Status: Acute Priority: Medium (3) Back pain Status: Acute Priority: Medium Hospital Course - Lab Results Lab Results: Micro Results 02/02/19 18:03 Stool Stool Culture - Final NO SALMONELLA, SHIGELLA OR CAMPYLOBACTER ISOLATED. 02/02/19 18:03 Stool Ova and Parasite Concentrate Exam - Final Most Recent Lab Values WBC 6.0 K/uL (4.8-10.8) 02/04/19 07:32 RBC 4.26 Mil/uL (3.80-5.20) 02/04/19 07:32 Hgb 12.1 g/dL (11.0-16.0) 02/04/19 07:32 Hct 35.7 % (34.0-47.0) 02/04/19 07:32 MCV 83.9 fL (81.0-99.0) 02/04/19 07:32 MCH 28.4 pg (27.0-31.0) 02/04/19 07:32 MCHC 33.9 g/dL (33.0-37.0) 02/04/19 07:32 RDW 13.7 % (11.5-14.5) 02/04/19 07:32 Plt Count 229 K/uL (130-400) 02/04/19 07:32 MPV 10.4 fL (7.2-11.7) 02/04/19 07:32 Neut % (Auto) 56.3 % (50.0-75.0) 02/04/19 07:32 Lymph % (Auto) 30.8 % (20.0-40.0) 02/04/19 07:32 [place] % (Auto) 10.0 % (0.0-10.0) 02/04/19 07:32 Eos % (Auto) 2.3 % (0.0-4.0) 02/04/19 07:32 Baso % (Auto) 0.6 % (0.0-2.0) 02/04/19 07:32 Neut # (Auto) 3.4 K/uL (1.8-7.0) 02/04/19 07:32 Lymph # (Auto) 1.9 K/uL (1.0-4.3) 02/04/19 07:32 [place] # (Auto) 0.6 K/uL (0.0-0.8) 02/04/19 07:32 Eos # (Auto) 0.1 K/uL (0.0-0.7) 02/04/19 07:32 Baso # (Auto) 0.0 K/uL (0.0-0.2) 02/04/19 07:32 ESR 10 mm/hr (0-20) 02/02/19 18:39 PT 12.0 SECONDS (9.7-12.2) 02/02/19 10:59 INR 1.1 02/02/19 10:59 APTT 33.0 SECONDS (21-34) 02/02/19 10:59 Sodium 139 mmol/L (132-148) 02/04/19 07:32 Potassium 3.9 mmol/L (3.6-5.2) 02/04/19 07:32 Chloride 105 mmol/L (98-107) 02/04/19 07:32 Carbon Dioxide 24 mmol/L (22-30) 02/04/19 07:32 Anion Gap 14 (10-20) 02/04/19 07:32 BUN 12 mg/dL (7-17) 02/04/19 07:32 Creatinine 0.9 mg/dL (0.7-1.2) 02/04/19 07:32 Est GFR ( Amer) > 60 02/04/19 07:32 Est GFR (Non-Af Amer) > 60 02/04/19 07:32 Random Glucose 85 mg/dL (65-105) 02/04/19 07:32 Calcium 9.1 mg/dl (8.6-10.4) 02/04/19 07:32 Phosphorus 3.0 mg/dL (2.5-4.5) 02/04/19 07:32 Magnesium 2.1 mg/dL (1.6-2.3) 02/04/19 07:32 Total Bilirubin 0.4 mg/dL (0.2-1.3) 02/04/19 07:32 AST 41 U/L (14-36) H D 02/04/19 07:32 ALT 39 U/L (9-52) 02/04/19 07:32 Alkaline Phosphatase 70 U/L (38-126) 02/04/19 07:32 Total Protein 6.5 g/dL (6.3-8.3) 02/04/19 07:32 Albumin 3.9 g/dL (3.5-5.0) 02/04/19 07:32 Globulin 2.7 gm/dL (2.2-3.9) 02/04/19 07:32 Albumin/Globulin Ratio 1.4 (1.0-2.1) 02/04/19 07:32 Lipase 52 U/L (23-300) 02/02/19 09:38 FSH 3rd Generation 4.2 mIU/mL 02/02/19 18:39 Luteinizing Hormone 7.0 mIU/mL 02/02/19 18:39 Beta HCG, Quant < 2.39 mIU/ML 02/02/19 09:38 Urine HCG, Qual Negative (NEGATIVE) 02/04/19 08:07 Stool Leukocytes, Qual Positive (NEGATIVE) H 02/02/19 18:39 C. difficile Ag & Toxin Negative (NEGATIVE) 02/02/19 18:39 Hepatitis A IgM Ab Negative (NEGATIVE) 02/02/19 18:39 Hep Bs Antigen Negative (NEGATIVE) 02/02/19 18:39 Hep B Core IgM Ab Negative (NEGATIVE) 02/02/19 18:39 Hepatitis C Antibody Negative (NEGATIVE) 02/02/19 18:39 - Hospital Course Hospital Course: 28 yo female w/ PMH of irregular periods, low back pain, achilles sprain, and external hemmorhoids admitted for rectal bleeding. Patient states the bleeding started 4 days ago with the low back pain. States she has a history of external hemorrhoids but the rectal bleeding is different because she is not having pain with bleeding bowel movements. States that she starting having diarrhea with major blood clots with bowel movements starting yesterday. Today she had an episode of nausea/vomiting x 1 and patient attributes it to drinking too much water. Has taken Aleve for past 4 days with the back pain. No recent abx use. No recent illness. Denies fevers, chills, chest pain, sob, n/v, constipation or diarrhea, and dysurai. Patient not currently . Patient was admitted for lower GI bleed. CT A/P showed acute nonspecific infectious/inflammatory colitis. Abdominal US showed echogenic liver and renal cyst. She was given IVF, PPI, and IV antibiotics. GI was consulted. They performed colonoscopy which revealed colitis and internal hemorrhoids. H&H remained wnl and stable. Stool studies positive for leukocytes, negative for cryptosporidium, giardia, C. diff CX, and O&P. Patient complained of low back pain. Lumbar XR was negative for acute findings. She was treated with osteopathic manipulation, lidoderm, and warm/cold compresses. Upon discharge, patient's abdominal pain was improving. She was still having some bleeding but improved. Diarrhea improved. Her back pain was also improving. Vitals and labs were stable. Patient tolerating all medications. She will continue PO antibiotics and follow-up in the clinic and with GI. Discharge Exam - Head Exam Head Exam: NORMAL INSPECTION - Eye Exam Eye Exam: EOMI, Normal appearance - ENT Exam ENT Exam: Mucous Membranes Moist - Cardiovascular Exam Cardiovascular Exam: RRR, +S1, +S2 - GI/Abdominal Exam GI & Abdominal Exam: Soft, Tenderness. absent: Distended, Guarding - Extremities Exam Extremities exam: normal inspection - Back Exam Back exam: NORMAL INSPECTION, paraspinal tenderness - Neurological Exam Neurological exam: Alert, CN II-XII Intact, Oriented x3 - Psychiatric Exam Psychiatric exam: Normal Affect, Normal Mood - Skin Skin Exam: Dry, Normal Color, Warm Discharge Plan - Discharge Medications Prescriptions: Ciprofloxacin [Cipro] 500 mg PO BID #10 tab metroNIDAZOLE [Flagyl] 500 mg PO Q8H #15 tab Pantoprazole [Protonix EC Tab] 40 mg PO DAILY #30 ect - Follow Up Plan Condition: IMPROVED Disposition: HOME/ ROUTINE Patient education suggested?: Yes Instructions: Gastrointestinal Bleeding (DC), Colitis (DC) Additional Instructions: Establish care at the [facility] at [facility]. Call [phone] to schedule an appointment. They will serve as your primary care provider. They can also do osteopathic manipulation therapy (OMT) on your back like you had done in the hospital. Follow-up with an OBGYN to evaluate your irregular periods. Follow-up with gastroenterology, Dr. Prince, in 3 weeks. Take the following medications: Cipro 500 mg twice daily for a total of 5 days Flagyl 500 mg three times daily for a total of 3 days Pantoprazole 40 mg daily If symptoms worsen or recur, return to the nearest emergency room. Referrals: [facility] [Outside] Saul Prince MD [Staff Provider] -
[2019-02-04 15:23] LABS: SOURCE STOOL
== END 2019-02-04 11:08 | disposition home or self-care (01) ==
LOC: C.ER 09:06 → C.9E 13:34 → C.5S 15:19
PROVIDERS: ADMIT Hospitalist; ATTEND Hospitalist
DX: K52.9 Noninfective gastroenteritis and colitis, unspecified (principal); K64.8 Other hemorrhoids; K62.5 Hemorrhage of anus and rectum; N28.1 Cyst of kidney, acquired; Z72.0 Tobacco use; Z82.49 Family history of ischemic heart disease and other diseases of the circulatory system
CPT/HCPCS: 36415; 45380; 72100; 76700; 80053; 80074; 83001; 83002; 83631; 83690; 83735; 84100; 84702; 84703; 85025; 85610; 85651; 85730; 86768; 87015; 87045; 87177; 87209; 87230; 87272; 88305; 89055; 96361; 96365; 96366; 96368; 96375; 99285; G0378; J0744; J2250; J2270; J2405; J2704; J7030